=== PATIENT | female | born 1945 | race Hispanic/Latino ===

== ENCOUNTER 2018-06-07 10:15 | Outpatient (CLI) | payer MEDICARE, BC ==
--- NOTE | 2018-07-02 10:24 | MMO ---
BILATERAL SCREENING MAMMOGRAMS: Date: 06/07/18 Comparison made to prior exams from 2013 and 2009. This patient's mammogram was interpreted with the assistance of computer-aided detection. FINDINGS: Heterogeneously dense glandular pattern again noted. No evidence of mass or distortion. No suspicious calcification. No interval change identified. Recommend one year follow-up. IMPRESSION: BIRADS 1: Negative POS: DAVE
== END 2018-06-07 10:16 | disposition home or self-care (01) ==
LOC: SCSMAMMO 10:15
PROVIDERS: ATTEND Family Medicine
DX: Z12.31 Encounter for screening mammogram for malignant neoplasm of breast (principal)
CPT/HCPCS: 77067

== ENCOUNTER 2023-02-02 14:52 | Outpatient (CLI) | payer MEDICARE, BC | END 2023-02-02 14:53 | disposition home or self-care (01) | LOC: BICRAD 14:52 | PROVIDERS: ATTEND Family Medicine | DX: M70.71 Other bursitis of hip, right hip (principal); M16.11 Unilateral primary osteoarthritis, right hip ==